=== PATIENT | male | born 1990 | race Caucasian/White ===

== ENCOUNTER 2020-10-20 02:20 | Inpatient (IN) | payer OTHER ==
[~2020-10-20] VITALS: Ht 167.6 cm; Wt 110.0 kg
[2020-10-20] MEDS ORDERED: dexamethasone sod phosphate 10mg/ml inj IV STA (03:04)
[2020-10-20 03:16] LABS: BASOPHILS % (AUTO) 0.2 % (0-1); EOSINOPHILS % (AUTO) 0 % (0-6); HEMATOCRIT 43.4 % (42.0-52.0); HEMOGLOBIN 14.8 g/dl (14.0-17.9); LYMPHOCYTES # (AUTO) 0.7 X10'3 (1.1-4.8); LYMPHOCYTES % (AUTO) 14.4 % (21-51); MEAN CORPUSCULAR HGB CONC 34.2 g/dL (33.0-36.5); MEAN CORPUSCULAR VOLUME 87.8 FL (78-98); MEAN PLATELET VOLUME 7.4 FL (7.4-10.4); MONOCYTES # (AUTO) 0.2 X10'3 (0-0.9); MONOCYTES % (AUTO) 4.8 % (2-12); NEUTROPHILS # (AUTO) 4.2 X10'3 (1.8-7.7); NEUTROPHILS % (AUTO) 80.6 % (42-75); PLATELET COUNT 153 X10'3 (140-440); RED BLOOD COUNT 4.95 X10'6 (4.70-6.10); WHITE BLOOD COUNT 5.2 X10'3 (4.5-11.0)
[2020-10-20 03:34] LABS: ALANINE AMINOTRANSFERASE 66 U/L (12-78); ALBUMIN 3.3 G/DL (3.4-5.0); ALBUMIN/GLOBULIN RATIO 0.8 (1.1-1.5); ALKALINE PHOSPHATASE 51 IU/L (46-116); ANION GAP 6 (8-16); ASPARTATE AMINO TRANSFERASE 75 U/L (10-37); BILIRUBIN,TOTAL 0.4 MG/DL (0.1-1.0); BLOOD UREA NITROGEN 9 MG/DL (7-18); BUN/CREATININE RATIO 8.4 (5.4-32.0); CALCIUM 8.9 MG/DL (8.5-10.1); CHLORIDE 100 MMOL/L (99-107); CREATININE 1.07 MG/DL (0.60-1.10); GLUCOSE 107 MG/DL (70-104); POTASSIUM 3.9 MMOL/L (3.5-5.1); SODIUM 136 MMOL/L (135-145); TOTAL CARBON DIOXIDE 29.6 MMOL/L (24-32); TOTAL PROTEIN 7.3 G/DL (6.4-8.2); eGFR 81 ML/MIN
[2020-10-20 04:08] LABS: ABG BASE EXCESS -0.6 mmol/L (-2.0-2.0); ABG HCO3 22.8 mmol/L (22.0-26.0); ABG OXYGEN SATURATION 96.1 % (94-97); ABG PCO2 (T) 34.6 mmHg (35.0-48.0); ABG PO2 (T) 78.2 mmHg (75.0-100.0); ALLEN'S TEST POSITIVE; FCOHb 0.9 % (0.0-3.9); FLOW 2 L/min; FMetHb 0.2 % (0.0-1.5); PATIENT TEMPERATURE 37.5
[2020-10-20 04:09] LABS: C-REACTIVE PROTEIN 4.89 MG/DL (0.0-0.5); LACTATE DEHYDROGENASE 470 U/L (85-227)
[2020-10-20 04:12] LABS: FERRITIN 1710 NG/ML (26-388)
[2020-10-20 04:14] LABS: D-DIMER 1.07 MG/L FEU (0-0.50)
[2020-10-20] MEDS ORDERED: magnesium 4gm in 100ml NS 100 ML IV PRN (04:40)
[2020-10-20] MEDS ORDERED: acetaminophen 325mg tablet PO PRN (04:40)
[2020-10-20] MEDS ORDERED: magnesium Cl slow-release 64mg tablet PO PRN (04:40)
[2020-10-20] MEDS ORDERED: ondansetron/PF 4mg/2ml inj IV PRN (04:40)
[2020-10-20] MEDS ORDERED: HYDROcodone/acetaminophen 5mg/325mg tablet PO PRN (04:40)
[2020-10-20] MEDS ORDERED: normal saline 1000ml 1,000 ML IV SCH (04:40)
[2020-10-20] MEDS ORDERED: mag hydrox/Alum hydrox/simeth 30ml oral suspension PO PRN (04:40)
[2020-10-20] MEDS ORDERED: potassium Cl 40MEQ/1/2NS 520ml 520 ML IV PRN ×2 (04:40)
[2020-10-20] MEDS ORDERED: magnesium 2GM in 50ml NS 50 ML IV PRN (04:40)
[2020-10-20] MEDS ORDERED: morphine 2 MG/ML inj. syringe IV PRN (04:40)
[2020-10-20] MEDS ORDERED: magnesium hydroxide 30ml (MOM) UD suspension PO PRN (04:40)
[2020-10-20] MEDS ORDERED: potassium Cl 20 mEq SR tablet PO PRN ×2 (04:40)
[2020-10-20] MEDS ORDERED: NO HOME MEDS (04:56)
[2020-10-20] MEDS: K and/or MAG REPLACEMENT MC SCH ×2 (08:00→20:00)
[2020-10-20] MEDS ORDERED: dexamethasone sod phosphate 10mg/ml inj IV SCH ×2 (08:00)
[2020-10-20] MEDS ORDERED: ALBUTEROL INHALER 1 PUFF/90 MCG INHALER IH PRN (08:05)
[2020-10-20] MEDS ORDERED: iohexol 350MG/ML 100ml bottle IV ONE (09:03)
--- NOTE | 2020-10-20 12:30 | NUR ---
DR CHEN IN ROOM TO CHARISSE WHITTEN.
[2020-10-20 18:06] VITALS: BP 137/93
[2020-10-20] MEDS ORDERED: dexamethasone 4mg/ml inj IV SCH (20:55)
[2020-10-20 22:00] VITALS: BP 131/83
[2020-10-20] MEDS: enoxaparin 40mg/0.4ml syringe SQ SCH (22:32)
[2020-10-20] MEDS: dexamethasone 4mg/ml inj IV SCH (22:32)
[2020-10-21 02:00] VITALS: BP 128/80
[2020-10-21 06:00] VITALS: BP 123/75
[2020-10-21] MEDS: dexamethasone 4mg/ml inj IV SCH ×2 (07:40→20:09)
[2020-10-21 07:55] LABS: BASOPHILS % (AUTO) 0.1 % (0-1); EOSINOPHILS % (AUTO) 0 % (0-6); HEMATOCRIT 42.8 % (42.0-52.0); HEMOGLOBIN 14.3 g/dl (14.0-17.9); LYMPHOCYTES # (AUTO) 0.6 X10'3 (1.1-4.8); LYMPHOCYTES % (AUTO) 16.7 % (21-51); MEAN CORPUSCULAR HEMOGLOBIN 29.3 PG (27.0-31.0); MEAN CORPUSCULAR HGB CONC 33.5 g/dL (33.0-36.5); MEAN CORPUSCULAR VOLUME 87.6 FL (78-98); MEAN PLATELET VOLUME 7.2 FL (7.4-10.4); MONOCYTES # (AUTO) 0.5 X10'3 (0-0.9); MONOCYTES % (AUTO) 13.8 % (2-12); NEUTROPHILS # (AUTO) 2.6 X10'3 (1.8-7.7); NEUTROPHILS % (AUTO) 69.4 % (42-75); PLATELET COUNT 199 X10'3 (140-440); RED BLOOD COUNT 4.89 X10'6 (4.70-6.10); RED CELL DISTRIBUTION WIDTH 13.1 % (11.5-14.5); WHITE BLOOD COUNT 3.7 X10'3 (4.5-11.0)
[2020-10-21] MEDS: K and/or MAG REPLACEMENT MC SCH ×2 (08:00→20:00)
[2020-10-21 08:19] LABS: ALANINE AMINOTRANSFERASE 74 U/L (12-78); ALBUMIN 2.8 G/DL (3.4-5.0); ALBUMIN/GLOBULIN RATIO 0.7 (1.1-1.5); ALKALINE PHOSPHATASE 39 IU/L (46-116); ANION GAP 8 (8-16); ASPARTATE AMINO TRANSFERASE 71 U/L (10-37); BILIRUBIN,TOTAL 0.3 MG/DL (0.1-1.0); BLOOD UREA NITROGEN 14 MG/DL (7-18); BUN/CREATININE RATIO 17.5 (5.4-32.0); C-REACTIVE PROTEIN 2.07 MG/DL (0.0-0.5); CALCIUM 9.7 MG/DL (8.5-10.1); CHLORIDE 103 MMOL/L (99-107); GLUCOSE 137 MG/DL (70-104); MAGNESIUM 2.5 MG/DL (1.5-2.4); POTASSIUM 4.8 MMOL/L (3.5-5.1); SODIUM 138 MMOL/L (135-145); TOTAL CARBON DIOXIDE 27.3 MMOL/L (24-32); TOTAL PROTEIN 6.8 G/DL (6.4-8.2); eGFR > 90 ML/MIN
[2020-10-21 08:32] LABS: D-DIMER 0.61 MG/L FEU (0-0.50)
[2020-10-21] MEDS ORDERED: REMDESIVIR 100MG inj. 200 MG in normal saline 100ml IV soln 100 ML IV ONE (08:45)
[2020-10-21 10:00] VITALS: BP 113/64
--- NOTE | 2020-10-21 11:59 | NUR ---
PAGER ID: [phone] MESSAGE: Norma [phone] Ryan quinones in [id number]- he is coughing a lot, nonproductive at this point, pain in his chest w cough, can he have antitussive
[2020-10-21] MEDS: guaiFENesin/codeine phos 10ml UD oral syrup PO PRN ×2 (12:59→20:24)
[2020-10-21 14:00] VITALS: BP 140/86
[2020-10-21 18:00] VITALS: BP 161/94
--- NOTE | 2020-10-21 18:38 | NUR ---
Patient in room ORTHO 4016. I have received report from Norma NICOLE and had the opportunity to ask questions and assume patient care.
[2020-10-21] MEDS: enoxaparin 40mg/0.4ml syringe SQ SCH (20:09)
[2020-10-21 22:00] VITALS: BP 129/63
[2020-10-22 02:00] VITALS: BP 122/67
[2020-10-22 06:00] VITALS: BP 137/87
--- NOTE | 2020-10-22 06:34 | NUR ---
Problems reprioritized. Patient report given, questions answered & plan of care reviewed with Willian NICOLE.
[2020-10-22] MEDS: guaiFENesin/codeine phos 10ml UD oral syrup PO PRN ×2 (08:26→22:13)
[2020-10-22] MEDS: dexamethasone 4mg/ml inj IV SCH ×2 (08:26→19:21)
[2020-10-22] MEDS: REMDESIVIR 100MG inj. 100 MG in normal saline 100ml IV soln 100 ML IV SCH (08:26)
[2020-10-22 08:34] LABS: BASOPHILS % (AUTO) 0.1 % (0-1); EOSINOPHILS % (AUTO) 0 % (0-6); HEMATOCRIT 43.3 % (42.0-52.0); HEMOGLOBIN 14.6 g/dl (14.0-17.9); LYMPHOCYTES # (AUTO) 0.6 X10'3 (1.1-4.8); LYMPHOCYTES % (AUTO) 7.9 % (21-51); MEAN CORPUSCULAR HEMOGLOBIN 29.7 PG (27.0-31.0); MEAN CORPUSCULAR HGB CONC 33.7 g/dL (33.0-36.5); MEAN PLATELET VOLUME 6.9 FL (7.4-10.4); MONOCYTES # (AUTO) 0.7 X10'3 (0-0.9); MONOCYTES % (AUTO) 8.6 % (2-12); NEUTROPHILS # (AUTO) 6.8 X10'3 (1.8-7.7); NEUTROPHILS % (AUTO) 83.4 % (42-75); PLATELET COUNT 263 X10'3 (140-440); RED BLOOD COUNT 4.93 X10'6 (4.70-6.10); RED CELL DISTRIBUTION WIDTH 13.5 % (11.5-14.5); WHITE BLOOD COUNT 8.2 X10'3 (4.5-11.0)
[2020-10-22 08:52] LABS: D-DIMER 0.36 MG/L FEU (0-0.50)
[2020-10-22 09:06] LABS: ALANINE AMINOTRANSFERASE 71 U/L (12-78); ALBUMIN 2.9 G/DL (3.4-5.0); ALBUMIN/GLOBULIN RATIO 0.7 (1.1-1.5); ALKALINE PHOSPHATASE 50 IU/L (46-116); ANION GAP 8 (8-16); ASPARTATE AMINO TRANSFERASE 55 U/L (10-37); BILIRUBIN,TOTAL 0.4 MG/DL (0.1-1.0); BLOOD UREA NITROGEN 12 MG/DL (7-18); BUN/CREATININE RATIO 13.8 (5.4-32.0); C-REACTIVE PROTEIN 0.88 MG/DL (0.0-0.5); CALCIUM 8.1 MG/DL (8.5-10.1); CHLORIDE 101 MMOL/L (99-107); CREATININE 0.87 MG/DL (0.60-1.10); GLUCOSE 124 MG/DL (70-104); MAGNESIUM 2.3 MG/DL (1.5-2.4); POTASSIUM 4.5 MMOL/L (3.5-5.1); SODIUM 137 MMOL/L (135-145); TOTAL CARBON DIOXIDE 28.3 MMOL/L (24-32); eGFR > 90 ML/MIN
[2020-10-22 09:32] VITALS: BP 148/90
[2020-10-22 14:00] VITALS: BP 153/104
[2020-10-22 18:00] VITALS: BP 145/95
[2020-10-22] MEDS: enoxaparin 40mg/0.4ml syringe SQ SCH (19:21)
[2020-10-22] MEDS: K and/or MAG REPLACEMENT MC SCH ×2 (19:21→19:22)
[2020-10-22 22:00] VITALS: BP 132/70
[2020-10-23 02:00] VITALS: BP 132/77
[2020-10-23 06:00] VITALS: BP 139/91
--- NOTE | 2020-10-23 06:09 | NUR ---
Problems reprioritized. Patient report given, questions answered & plan of care reviewed with Janessa NICOLE.
--- NOTE | 2020-10-23 07:12 | NUR ---
Patient in room ORTHO 4016. I have received report from Yari NICOLE and had the opportunity to ask questions and assume patient care.
[2020-10-23] MEDS: REMDESIVIR 100MG inj. 100 MG in normal saline 100ml IV soln 100 ML IV SCH (07:24)
[2020-10-23] MEDS: dexamethasone 4mg/ml inj IV SCH ×2 (07:24→20:28)
[2020-10-23 07:47] LABS: BASOPHILS % (AUTO) 0.3 % (0-1); EOSINOPHILS % (AUTO) 0 % (0-6); HEMATOCRIT 40.9 % (42.0-52.0); HEMOGLOBIN 13.8 g/dl (14.0-17.9); LYMPHOCYTES # (AUTO) 0.6 X10'3 (1.1-4.8); LYMPHOCYTES % (AUTO) 9.1 % (21-51); MEAN CORPUSCULAR HEMOGLOBIN 29.7 PG (27.0-31.0); MEAN CORPUSCULAR HGB CONC 33.8 g/dL (33.0-36.5); MEAN CORPUSCULAR VOLUME 87.9 FL (78-98); MONOCYTES # (AUTO) 0.9 X10'3 (0-0.9); MONOCYTES % (AUTO) 14.2 % (2-12); NEUTROPHILS # (AUTO) 4.9 X10'3 (1.8-7.7); NEUTROPHILS % (AUTO) 76.4 % (42-75); PLATELET COUNT 262 X10'3 (140-440); RED BLOOD COUNT 4.66 X10'6 (4.70-6.10); RED CELL DISTRIBUTION WIDTH 13.2 % (11.5-14.5); WHITE BLOOD COUNT 6.4 X10'3 (4.5-11.0)
[2020-10-23] MEDS: K and/or MAG REPLACEMENT MC SCH ×2 (08:00→20:00)
[2020-10-23 08:05] LABS: D-DIMER 0.39 MG/L FEU (0-0.50)
[2020-10-23 08:33] LABS: ALANINE AMINOTRANSFERASE 86 U/L (12-78); ALBUMIN 2.7 G/DL (3.4-5.0); ALBUMIN/GLOBULIN RATIO 0.7 (1.1-1.5); ALKALINE PHOSPHATASE 38 IU/L (46-116); ANION GAP 8 (8-16); ASPARTATE AMINO TRANSFERASE 47 U/L (10-37); BILIRUBIN,TOTAL 0.4 MG/DL (0.1-1.0); BLOOD UREA NITROGEN 15 MG/DL (7-18); BUN/CREATININE RATIO 21.1 (5.4-32.0); C-REACTIVE PROTEIN 0.85 MG/DL (0.0-0.5); CHLORIDE 102 MMOL/L (99-107); CREATININE 0.71 MG/DL (0.60-1.10); GLUCOSE 132 MG/DL (70-104); MAGNESIUM 2.4 MG/DL (1.5-2.4); POTASSIUM 4.4 MMOL/L (3.5-5.1); SODIUM 137 MMOL/L (135-145); TOTAL CARBON DIOXIDE 27.3 MMOL/L (24-32); TOTAL PROTEIN 6.7 G/DL (6.4-8.2); eGFR > 90 ML/MIN
--- NOTE | 2020-10-23 09:30 | NUR ---
Assumed care of pt. Pt awake and alert. Pt up OOB and walking in room. Encouraged ambulation as well as IS use to wean o2.
[2020-10-23 10:00] VITALS: BP 146/100
--- NOTE | 2020-10-23 10:04 | NUR ---
Problems reprioritized. Patient report given, questions answered & plan of care reviewed with Willian NICOLE.
[2020-10-23 14:35] VITALS: BP 144/77
[2020-10-23 18:00] VITALS: BP 156/106
[2020-10-23] MEDS: enoxaparin 40mg/0.4ml syringe SQ SCH (20:26)
[2020-10-23 22:00] VITALS: BP 140/86
[2020-10-24 02:00] VITALS: BP 134/91
[2020-10-24 06:00] VITALS: BP 120/78
--- NOTE | 2020-10-24 06:00 | NUR ---
Problems reprioritized. Patient report given, questions answered & plan of care reviewed with Pina NICOLErim fire charger operator nurse for day shift. Addendum: 10/24/20 at 0609 by Rebekah Canseco RN Amended: Links added.
--- NOTE | 2020-10-24 06:05 | NUR ---
RECEIVED REPORT FROM BONNIE JAMIES
[2020-10-24] MEDS: REMDESIVIR 100MG inj. 100 MG in normal saline 100ml IV soln 100 ML IV SCH (07:49)
[2020-10-24] MEDS: dexamethasone 4mg/ml inj IV SCH ×2 (07:50→19:27)
[2020-10-24] MEDS: K and/or MAG REPLACEMENT MC SCH ×2 (08:00→19:15)
[2020-10-24 08:21] LABS: BASOPHILS % (AUTO) 0.2 % (0-1); EOSINOPHILS % (AUTO) 0 % (0-6); HEMATOCRIT 44.4 % (42.0-52.0); HEMOGLOBIN 15.2 g/dl (14.0-17.9); LYMPHOCYTES % (AUTO) 13.1 % (21-51); MEAN CORPUSCULAR HEMOGLOBIN 29.9 PG (27.0-31.0); MEAN CORPUSCULAR HGB CONC 34.3 g/dL (33.0-36.5); MEAN CORPUSCULAR VOLUME 87.3 FL (78-98); MEAN PLATELET VOLUME 7.1 FL (7.4-10.4); MONOCYTES % (AUTO) 13.1 % (2-12); NEUTROPHILS # (AUTO) 5.8 X10'3 (1.8-7.7); NEUTROPHILS % (AUTO) 73.6 % (42-75); PLATELET COUNT 338 X10'3 (140-440); RED BLOOD COUNT 5.08 X10'6 (4.70-6.10); RED CELL DISTRIBUTION WIDTH 13.2 % (11.5-14.5); WHITE BLOOD COUNT 7.9 X10'3 (4.5-11.0)
[2020-10-24 08:27] LABS: D-DIMER 0.39 MG/L FEU (0-0.50)
[2020-10-24 08:32] LABS: ALANINE AMINOTRANSFERASE 128 U/L (12-78); ALBUMIN/GLOBULIN RATIO 0.7 (1.1-1.5); ALKALINE PHOSPHATASE 42 IU/L (46-116); ANION GAP 9 (8-16); ASPARTATE AMINO TRANSFERASE 53 U/L (10-37); BILIRUBIN,TOTAL 0.6 MG/DL (0.1-1.0); BLOOD UREA NITROGEN 17 MG/DL (7-18); BUN/CREATININE RATIO 19.3 (5.4-32.0); C-REACTIVE PROTEIN 0.28 MG/DL (0.0-0.5); CALCIUM 8.2 MG/DL (8.5-10.1); CHLORIDE 103 MMOL/L (99-107); CREATININE 0.88 MG/DL (0.60-1.10); GLUCOSE 105 MG/DL (70-104); MAGNESIUM 2.3 MG/DL (1.5-2.4); POTASSIUM 4.6 MMOL/L (3.5-5.1); SODIUM 139 MMOL/L (135-145); TOTAL CARBON DIOXIDE 27.4 MMOL/L (24-32); TOTAL PROTEIN 7.4 G/DL (6.4-8.2); eGFR > 90 ML/MIN
[2020-10-24 10:00] VITALS: BP 122/77
[2020-10-24 14:00] VITALS: BP 120/78
[2020-10-24 18:00] VITALS: BP 117/63
--- NOTE | 2020-10-24 18:08 | NUR ---
GAVE REPORT TO BONNIE KUHN
[2020-10-24] MEDS: enoxaparin 40mg/0.4ml syringe SQ SCH (19:28)
[2020-10-24 22:00] VITALS: BP 130/73
[2020-10-25 06:00] VITALS: BP 137/99
--- NOTE | 2020-10-25 06:23 | NUR ---
Report given to preston Nuñez.
--- NOTE | 2020-10-25 06:43 | NUR ---
Patient in room ORTHO 4016. I have received report from BONNIE KUHN and had the opportunity to ask questions and assume patient care.
[2020-10-25] MEDS: dexamethasone 4mg/ml inj IV SCH (07:48)
[2020-10-25] MEDS: REMDESIVIR 100MG inj. 100 MG in normal saline 100ml IV soln 100 ML IV SCH (07:48)
[2020-10-25] MEDS: K and/or MAG REPLACEMENT MC SCH ×2 (08:00→20:00)
[2020-10-25 08:20] LABS: BASOPHILS % (AUTO) 0.1 % (0-1); EOSINOPHILS % (AUTO) 0 % (0-6); HEMATOCRIT 42.7 % (42.0-52.0); HEMOGLOBIN 14.6 g/dl (14.0-17.9); LYMPHOCYTES # (AUTO) 1.3 X10'3 (1.1-4.8); LYMPHOCYTES % (AUTO) 16.7 % (21-51); MEAN CORPUSCULAR HEMOGLOBIN 29.8 PG (27.0-31.0); MEAN CORPUSCULAR HGB CONC 34.1 g/dL (33.0-36.5); MEAN CORPUSCULAR VOLUME 87.5 FL (78-98); MEAN PLATELET VOLUME 7.2 FL (7.4-10.4); MONOCYTES # (AUTO) 0.9 X10'3 (0-0.9); MONOCYTES % (AUTO) 10.9 % (2-12); NEUTROPHILS # (AUTO) 5.7 X10'3 (1.8-7.7); NEUTROPHILS % (AUTO) 72.3 % (42-75); PLATELET COUNT 333 X10'3 (140-440); RED BLOOD COUNT 4.88 X10'6 (4.70-6.10); RED CELL DISTRIBUTION WIDTH 13.3 % (11.5-14.5); WHITE BLOOD COUNT 7.8 X10'3 (4.5-11.0)
[2020-10-25 08:37] LABS: D-DIMER 0.28 MG/L FEU (0-0.50)
[2020-10-25 08:54] LABS: BILIRUBIN,TOTAL 0.4 MG/DL (0.1-1.0); BLOOD UREA NITROGEN 16 MG/DL (7-18); BUN/CREATININE RATIO 22.5 (5.4-32.0); C-REACTIVE PROTEIN 0.08 MG/DL (0.0-0.5); CHLORIDE 103 MMOL/L (99-107); CREATININE 0.71 MG/DL (0.60-1.10); GLUCOSE 100 MG/DL (70-104); POTASSIUM 4.4 MMOL/L (3.5-5.1); SODIUM 137 MMOL/L (135-145); eGFR > 90 ML/MIN
[2020-10-25 08:55] LABS: ALANINE AMINOTRANSFERASE 166 U/L (12-78); ALBUMIN 2.8 G/DL (3.4-5.0); ALBUMIN/GLOBULIN RATIO 0.7 (1.1-1.5); ALKALINE PHOSPHATASE 35 IU/L (46-116); ANION GAP 8 (8-16); ASPARTATE AMINO TRANSFERASE 50 U/L (10-37); MAGNESIUM 2.3 MG/DL (1.5-2.4); TOTAL CARBON DIOXIDE 26.5 MMOL/L (24-32); TOTAL PROTEIN 6.8 G/DL (6.4-8.2)
[2020-10-25 10:00] VITALS: BP 117/64
--- NOTE | 2020-10-25 11:11 | NUR ---
PT SAO2 94% 1L NC. TOOK PT OFF O2, WILL CONTINUE TO MONITOR.
--- NOTE | 2020-10-25 13:47 | NUR ---
Initial: Pt admit DX COVID-19 and acute respiratory failure w/ hypoxia currently on nasal cannula per note. PO 75% avg heart healthy diet decent given DX. BMI 39 but pending scaled wt this admit; RD recommends ensure high protein TIDWM for additional protein needs given DX and respiratory status. notified. LBM 10/22. Will continue to monitor. Rec: 1. continue heart healthy diet 2. ensure high protein TIDWM 3. routine bowel care 4. scaled wt this admit Addendum: 10/25/20 at [address] Amended: Links added.
[2020-10-25 14:00] VITALS: BP 140/91
[2020-10-25] MEDS ORDERED: dexamethasone 4mg/ml inj IV SCH (14:45)
--- NOTE | 2020-10-25 15:43 | NUR ---
Page Sent PAGER ID: [phone] MESSAGE: WILLARD [id number]-RE: BRICE CHEN [id number]...PT REC'D 6 MG DEXAMETHASONE TODAY AT 0748. DO YOU WANT ANOTHER 6MG NOW? Addendum: 10/25/20 at 1545 by Willard Hardy RN NO SECOND DOSE TODAY, WANTS Q .
[2020-10-25] MEDS ORDERED: lactose-reduced food (Ensure High Protein) 237ml bottle PO SCH (18:00)
--- NOTE | 2020-10-25 18:24 | NUR ---
Problems reprioritized. Patient report given, questions answered & plan of care reviewed with BONNIE MARTINEZ.
[2020-10-25 18:30] VITALS: BP 148/96
[2020-10-25] MEDS: enoxaparin 40mg/0.4ml syringe SQ SCH (19:27)
[2020-10-25 22:00] VITALS: BP 147/90
[2020-10-26 02:00] VITALS: BP 138/98
[2020-10-26 06:00] VITALS: BP 147/90
[2020-10-26] MEDS ORDERED: dexamethasone 4mg/ml inj IV SCH (08:00)
[2020-10-26] MEDS: K and/or MAG REPLACEMENT MC SCH (08:00)
[2020-10-26 10:00] VITALS: BP 132/75
[2020-10-26] MEDS ORDERED: DEC4T PO (10:23)
[2020-10-26] MEDS ORDERED: RIVA10TA PO (10:23)
== END 2020-10-26 13:06 | disposition home or self-care (01) | DRG 177 ==
LOC: ER 02:24 → ED HOLD 04:39 → EDBEDREQSVC 11:11 → ORTHO 4S 17:46
PROVIDERS: ADMIT Family Medicine; ATTEND Family Medicine
PROC: XW033E5 Introduction of Remdesivir Anti-infective into Peripheral Vein, Percutaneous Approach, New Technology Group 5 (ICD-10-PCS; principal; 2020-10-21)
DX: U07.1 COVID-19 (principal); J12.82 Pneumonia due to coronavirus disease 2019; J96.01 Acute respiratory failure with hypoxia; E66.01 Morbid (severe) obesity due to excess calories; Z68.39 Body mass index [BMI] 39.0-39.9, adult
CPT/HCPCS: 36415; 36600; 71045; 71275; 80053; 82728; 82803; 83605; 83615; 83735; 83880; 84145; 85018; 85025; 85379; 85384; 86140; 87040; 93005; 96374; 99285; G0378; J1100; J1650; J7030; Q9967

== ENCOUNTER → 2021-08-29 | Emergency (ER) | payer OTHER ==
[~2021-08-29] VITALS: Ht 170.2 cm; Wt 109.1 kg
[~2021-08-29] MED LIST: ALBU8HFA PO; AZIT-83 PO; RIVA10TA PO; acetaminophen 325mg tablet PO ONE
[2021-08-29 11:57] VITALS: BP 198/96
[2021-08-29 12:50] LABS: BASOPHILS % (AUTO) 0.6 % (0-1); EOSINOPHILS % (AUTO) 0.3 % (0-6); HEMATOCRIT 45.2 % (42.0-52.0); HEMOGLOBIN 15.2 g/dl (14.0-17.9); LYMPHOCYTES # (AUTO) 0.8 X10'3 (1.1-4.8); LYMPHOCYTES % (AUTO) 9.1 % (21-51); MEAN CORPUSCULAR HEMOGLOBIN 29.5 PG (27.0-31.0); MEAN CORPUSCULAR HGB CONC 33.6 g/dL (33.0-36.5); MEAN CORPUSCULAR VOLUME 87.6 FL (78-98); MEAN PLATELET VOLUME 7.7 FL (7.4-10.4); MONOCYTES # (AUTO) 0.8 X10'3 (0-0.9); MONOCYTES % (AUTO) 8.8 % (2-12); NEUTROPHILS # (AUTO) 6.9 X10'3 (1.8-7.7); NEUTROPHILS % (AUTO) 81.2 % (42-75); PLATELET COUNT 221 X10'3 (140-440); RED BLOOD COUNT 5.16 X10'6 (4.70-6.10); WHITE BLOOD COUNT 8.5 X10'3 (4.5-11.0)
== END | disposition home or self-care (01) ==
LOC: ER 11:02
DX: J20.9 Acute bronchitis, unspecified (principal); J06.9 Acute upper respiratory infection, unspecified; Z20.822 Contact with and (suspected) exposure to COVID-19
CPT/HCPCS: 71045; 85025; 87635; 99284; C9803